=== PATIENT | female | born 1995 | race Two or more races ===

== ENCOUNTER 2025-06-10 13:53 | Emergency (ER) | payer OTHER ==
[~2025-06-10] VITALS: Ht 165.1 cm; Wt 108.9 kg
[2025-06-10] MEDS ORDERED: SINGULAIR10 MG (14:34)
[2025-06-10] MEDS ORDERED: METHYLPREDNISOLONE SOD SUCC 125 MG in 0.9 % SODIUM CHLORIDE 100 ML IV STA (15:56)
[2025-06-10] MEDS ORDERED: CEFTRIAXONE SODIUM 1,000 MG VIAL IM STA (15:57)
[2025-06-10] MEDS ORDERED: LEVALBUTEROL HCL 1.25 MG/3 ML SOLUTION IH SCH (16:00)
[2025-06-10] MEDS ORDERED: IPRATROPIUM BROMIDE 0.5 MG/2.5 ML AMPUL.NEB IH SCH (16:00)
[2025-06-10] MEDS ORDERED: METHYLPREDNISOLONE SOD SUCC 125 MG VIAL ONE (16:04)
[2025-06-10] MEDS ORDERED: CEFTRIAXONE SODIUM 1,000 MG VIAL ONE ×2 (16:05→16:37)
[2025-06-10] MEDS ORDERED: LEVALBUTEROL HCL 1.25 MG/3 ML SOLUTION IH ONE (16:32)
[2025-06-10] MEDS ORDERED: IPRATROPIUM BROMIDE 0.5 MG/2.5 ML AMPUL.NEB IH ONE (16:33)
[2025-06-10 16:47] LABS: BASO % 0.7 % (0.1-1.2); EOS # 0.01 (0.04-0.54); EOS % 0.1 % (0.7-7.0); LYMPH # 1.44 (1.18-3.74); LYMPH % 14.3 % (19.3-53.1); MEAN PLATELET VOLUME 9.80 fl (9.4-12.4); MONO # 0.12 (0.24-0.82); MONO % 1.2 % (4.7-12.5); NEUT # 8.35 (1.56-6.13); NEUT % 83.0 % (34.0-71.1); RED CELL DISTRIBUTION WIDTH 11.2 % (11.6-14.4)
[2025-06-10 17:13] LABS: ALT/SGPT 24.0 U/L (12-78); AST/SGOT 14.0 U/L (15-37); BILIRUBIN TOTAL 0.46 mg/dL (0.3-1.2); BUN CREA RATIO 12.0 (7.0-25.0); CREATININE SERUM 0.73 mg/dL (0.55-1.02); GFR 94.25; GLOBULINA 4.0 G/DL (2.4-3.5); GLUCOSE FASTING 107.0 mg/dL (65-100); OSMOLALITY SERUM 280.0 MOSM/KG (275-295)
[2025-06-10 17:14] LABS: COVID-19 AG NEGATIVE (NEGATIVE)
== END 2025-06-10 21:04 | disposition home or self-care (01) ==
LOC: ER 13:53
PROVIDERS: General Practice
DX: J45.901 Unspecified asthma with (acute) exacerbation (principal); J06.9 Acute upper respiratory infection, unspecified; Z20.822 Contact with and (suspected) exposure to COVID-19